=== PATIENT | female | born 1930 | race Caucasian/White ===

== ENCOUNTER → 2016-08-25 | Outpatient (CLI) | payer MEDICARE, OTHER ==
[~2016-08-25] MED LIST: ADVI200C5 PO; ALBUAER3 INH; ASPI81CH CHEW; B12-1CHW CHEW; BENZ100 PO; BETH25TA2 PO; CALC-131 PO; ESTR.625 PO; IMDU30TA PO; ISOS30TA3 PO; LEVO.075 PO; LYRI100C PO; OMEG5CAP PO; PRED20 PO; ROSU5 PO; SPIRCAP INH; ZANT150T2 PO; ZETI10TA5 PO
[2016-08-25 14:43] LABS: AUTOMATED NEUTROPHIL # 3.9 TH/MM3 (1.8-7.7); BASOPHIL # 0.1 TH/MM3 (0-0.2); BASOPHIL % 1.1 % (0.0-2.0); EOSINOPHIL # 0.1 TH/MM3 (0-0.4); EOSINOPHIL % 1.9 % (0.0-4.0); HEMATOCRIT 41.9 % (35.0-46.0); HEMO FLAGS DIFF FINAL; LYMPH % 31.5 % (9.0-44.0); LYMPHOCYTE # 2.1 TH/MM3 (1.0-4.8); MEAN CELL VOLUME 87.7 FL (80.0-100.0); MEAN CORPUSCULAR HEMOGLOBIN 29.7 PG (27.0-34.0); MEAN CORPUSCULAR HGB CONC 33.9 % (32.0-36.0); MONO % 6.8 % (0.0-8.0); NEUT % 58.7 % (16.0-70.0); PLATELET COUNT 213 TH/MM3 (150-450); RED BLOOD COUNT 4.78 MIL/MM3 (4.00-5.30); RED CELL DISTRIBUTION WIDTH 13.8 % (11.6-17.2); WHITE BLOOD COUNT 6.6 TH/MM3 (4.0-11.0)
--- NOTE | 2016-08-26 18:00 | EKG ---
Date Performed: 08/25/2016 Time Performed: 12:56:29 PTAGE: 86 years EKG: Sinus rhythm POSSIBLE LEFT ATRIAL ENLARGEMENT Since previous tracing, no significant change noted BORDERLINE ECG PREVIOUS TRACING : 05/28/2016 17.18 DOCTOR: Jluis Aviles Interpretating Date/Time 08/26/2016 18:00:11
== END ==
LOC: CPRE 12:29
PROVIDERS: ATTEND Ophthalmology
DX: Z01.810 Encounter for preprocedural cardiovascular examination (principal); Z01.812 Encounter for preprocedural laboratory examination; H25.812 Combined forms of age-related cataract, left eye; I25.10 Atherosclerotic heart disease of native coronary artery without angina pectoris; R94.31 Abnormal electrocardiogram [ECG] [EKG]
CPT/HCPCS: 36415; 85025; 93005

== ENCOUNTER → 2016-09-08 | Day surgery (SDC) | payer MEDICARE, OTHER ==
--- NOTE | 2016-08-26 12:58 | MH ---
cc: TATIANNA WANG DATE OF ADMISSION: 09/08/2016 ADMISSION DIAGNOSIS Cataract, left eye. HISTORY OF PRESENT ILLNESS This 86-year-old white female is coming through [facility] for the purpose of a lens extraction of the left eye with intraocular lens implant under general anesthesia. She has noticed decreasing visual acuity interfering with her daily activities and elected to have the above procedure. Her best corrected visual acuity in room light is 20/70 in each eye. PAST MEDICAL HISTORY 1. The patient has a history of vertigo and cannot lie flat comfortably and therefore is having her procedure done under general anesthesia. 2. History of a stroke in the past versus TIA. 3. Neuropathy. 4. Polymyalgia rheumatica with a history of temporal arteritis on the right side. 5. Allergic asthma. 6. Gastroesophageal reflux disease. 7. Meniere's disease with the episodes of vertigo. PAST SURGICAL HISTORY 1. Hysterectomy. 2. Gallbladder surgery. 3. Left carotid endarterectomy. 4. Heart catheterization. 5. Laser peripheral iridectomy in each eye for narrow anterior chamber angles. MEDICATIONS Daily medications include: 1. Lyrica. 2. Anne. 3. Premarin. 4. Synthroid. 5. Zetia. 6. Crestor. 7. Bethanechol. 8. Zantac. 9. Spiriva. 10.Imdur ER. 11.Isosorbide. 12.Babay aspirin, two a day. 13.Vitamin B2 and B-complex. 14.Calcium. 15.Fish oil. 16.Advil p.r.n. ALLERGIES 1. SULFA. 2. "MOST ANTIBIOTICS AND NARCOTICS." FAMILY HISTORY Positive for parents with cataracts, mother with diabetes and diabetic retinopathy. REVIEW OF SYSTEMS HEAD: Patient denies severe headaches or recent head injury. Patient does have some positional vertigo as mentioned. EARS: She wears hearing aids due to hearing loss. She has tinnitus, ringing in her ears. NOSE: Patient denies nasal discharge, obstruction or frequent colds. MOUTH AND THROAT: Patient denies soreness of the mouth or tongue, bleeding gums, trouble swallowing, changes in voice or sore throat. NECK: She has some neck discomfort due to polymyalgia and disc degeneration. CARDIOPULMONARY SYSTEM: She has a history of bronchitis secondary to allergies and asthma. Patient denies shortness of breath, orthopnea, chronic cough, sputum production, hemoptysis, chest pain, wheezing, palpitations or light-headedness. GI SYSTEM: She has hemorrhoids. Patient denies poor appetite, nausea, vomiting, abdominal pain, ulcers, or change in bowel habits. SYSTEM: The patient denies urinary frequency, dysuria, change in urine color. NERVOUS SYSTEM: History of vertigo and stroke versus TIA. Patient denies convulsions, numbness or weakness. PHYSICAL EXAMINATION VITAL SIGNS: Blood pressure 128/72, pulse 76, respirations 20. HEAD: Normocephalic, atraumatic. NOSE: Without rhinorrhea. THROAT: Clear. NECK: Supple. CHEST: Clear. HEART: Regular rhythm with murmur. ABDOMEN: Without tenderness. EXTREMITIES: Without edema. NEUROLOGIC: Within normal limits. MENTAL STATUS: Within normal limits. EYE EXAM: The patient's best-corrected visual acuity in room light is 20/70 in each eye. Visual becker are full to confrontation testing. Extraocular muscle exam reveals full versions with orthophoria at distance and near. Pupils are 2 mm equal, round, reactive to light without afferent defect. Anterior segment examination reveals a patent peripheral iridectomy in each eye. Posterior synechia are present in the right eye from 1-2 o'clock and in the left eye from 10-11 o'clock. There are nuclear sclerotic and cortical cataract changes present bilaterally. Intraocular pressure is 27 in each eye by applanation tonometry. Dilated fundus exam revealed sharp disks with cup-to-disk ratio of 0.25 bilaterally. There is granularity in the macula of each eye and a posterior vitreous detachment is present bilaterally. IMPRESSION 1. Bilateral cataracts. 2. Early macular degeneration. 3. Posterior vitreous detachment, both eyes. 4. Glaucoma suspect, low risk. PLAN Lens extraction of the left eye with intraocular lens implant under general anesthesia due to the patient's vertigo and unable to lie flat. Iris retractors may be used in this case as the patient has posterior synechia and small pupils that do not dilate well. The patient has been cleared medically. She has been counseled as to the risks, benefits and alternatives and elected to proceed. I feel that cataract surgery will improve the quality of life and activities of daily living in this patient. MD VITALIY Silva /12:27 PM /12:44 PM
[~2016-09-08] VITALS: Ht 167.6 cm; Wt 54.0 kg
[~2016-09-08] MED LIST changes: +ACETAMINOPHEN 325 MG TAB ONE; +ACETYLCHOLINE CHL OPHT SOLN 1:100 2 ML VIAL ONE; -ALBUAER3 INH; -BENZ100 PO; +CYCLOPENTOLATE HCL 1% OPHT SOLN 2 ML BTL ONE; +DICLOFENAC SOD 0.1% OPHT SOLN 2.5 ML BTL ONE; +EPINEPHrine HCL (1:1000) 30 MG/30 ML VIAL ONE; +FAMOTIDINE 20 MG/2 ML VIAL ONE; +GATIFLOXACIN 0.5% OPHT SOLN 2.5 ML BTL ONE; -IMDU30TA PO; +LIDOCAINE HCL 1% 30 ML VIAL OTHER ONE; +MIDAZOLAM HCL 2 MG/2 ML VIAL ONE; +ONDANSETRON HCL 4 MG/2 ML VIAL IV PUSH ONE; +PHENYLEPHRINE HCL 2.5% OPTH SOLN 2 ML BTL ONE; -PRED20 PO; +PROPARACAINE HCL 0.5% OPHT SOLN 15 ML BTL ONE; +SODIUM CHLORID 0.9% 500 ML INJ 500 ML ONE; +TROPICAMIDE 1% OPHT SOLN 15 ML BTL ONE; +VISCOAT OPHT IRRIG SOLN 0.75 ML SYRINGE LEFT EYE ONE; +ePHEDrine/NS 25 MG/5 ML SYR IV ONE
[2016-09-08 07:35] VITALS: BP 172/72; PULSE 80; RESP 16; TEMP 97.9; O2SAT 94
[2016-09-08] MEDS: PILOCARPINE HCL 2% OPHT SOLN 15 ML BTL ONE ×2 (09:17→10:04)
[2016-09-08] MEDS: TOBRAMYCIN/DEXAMETHASONE OPTH OINT 3.5 GM TUBE ONE ×3 (09:20→10:09)
[2016-09-08 10:20] VITALS: PULSE 83
[2016-09-08 10:45] VITALS: TEMP 97.5
[2016-09-08 11:10] VITALS: BP 145/50; PULSE 83; RESP 14; O2SAT 96
--- NOTE | 2016-09-08 11:27 | MP ---
cc: TATIANNA COPE DATE OF SURGERY: September 08, 2016 PREOPERATIVE DIAGNOSIS Cataract, left eye. POSTOPERATIVE DIAGNOSIS Cataract, left eye. OPERATION Extracapsular cataract extraction with posterior Chamber intraocular lens implant by phacoemulsification, left eye. SURGEON Tatianna Cope M.D. ANESTHESIA General. COMPLICATIONS None. INDICATIONS See history and physical previously dictated. OPERATIVE PROCEDURE After the patient had obtained adequate general anesthesia the left eye was prepped and draped in the usual sterile ophthalmic manner. A lid speculum was inserted in the left eye. A 4-0 silk bridle suture was placed through the conjunctiva near the superior rectus muscle and it was tagged to the drape. A fornix-based conjunctival flap was prepared spanning approximately 5 mm in width. Hemostasis was obtained with wet-field cautery. A 3.5 mm groove was made 1 mm from the limbus and dissected up to the limbus in the form of a scleral pocket incision. A stab incision was then made at the 2 o'clock position. Viscoelastic was injected into the anterior chamber. In order to maintain an adequately dilated pupil, it was elected to use iris retractors in this case. Stab incisions were made at the 1 o'clock, 3 o'clock, 5 o'clock, 8 o'clock and 10 o'clock positions. Iris retractors were then inserted through the stab incisions in the peripheral cornea and positioned to enlarge the size of the pupil. The anterior chamber was entered with a 3.0 mm keratome through the scleral pocket incision. A 360 degree continuous curvilinear capsulorrhexis was then performed. Hydrodissection was utilized to divide the nucleus into inner and outer components and to separate the cortex from the capsule. Phacoemulsification was then utilized to remove the nucleus. The outer nuclear layer was removed with irrigation and aspiration and short bursts of ultrasound as necessary. The cortex was removed with the irrigation-aspiration handpiece. The posterior capsule was polished with the capsule polisher. Viscoelastic was injected into the capsular bag. The intraocular lens was inspected and found to be in good condition. The lens utilized was a Twin model SA60AT with a power of +21 diopters. The lens was inserted into the capsular bag. The five iris retractors were removed. The viscoelastic in the anterior chamber was then removed with the irrigation-aspiration hand piece. Viscoelastic was also removed from beneath the intraocular lens. The anterior chamber was filled with Miochol-E through the stab incision and pressurized. The wound was checked for leaks at this pressure and normalized pressure and there were none. The 4-0 bridle suture was removed. The conjunctival flap was brought down over the wound and secured with cautery. Pilocarpine 2% eye drops were instilled topically. The lid speculum was removed. TobraDex ophthalmic ointment was applied. The eye was double patched and shielded. The patient tolerated the procedure well and left the operating room in satisfactory condition. MD JESSICA Silva/ZOYA /10:25 AM /11:13 AM
== END | disposition home or self-care (01) ==
LOC: CSDC 07:00
PROVIDERS: ATTEND Ophthalmology
DX: H25.812 Combined forms of age-related cataract, left eye (principal)
CPT/HCPCS: 00142; 66984; J0171; J2250; J2405; J7040; V2632

== ENCOUNTER → 2016-10-06 | Outpatient (CLI) | payer MEDICARE, OTHER ==
[~2016-10-06] MED LIST changes: -ACETAMINOPHEN 325 MG TAB ONE; -ACETYLCHOLINE CHL OPHT SOLN 1:100 2 ML VIAL ONE; -CYCLOPENTOLATE HCL 1% OPHT SOLN 2 ML BTL ONE; -DICLOFENAC SOD 0.1% OPHT SOLN 2.5 ML BTL ONE; -EPINEPHrine HCL (1:1000) 30 MG/30 ML VIAL ONE; -FAMOTIDINE 20 MG/2 ML VIAL ONE; -GATIFLOXACIN 0.5% OPHT SOLN 2.5 ML BTL ONE; -LIDOCAINE HCL 1% 30 ML VIAL OTHER ONE; -MIDAZOLAM HCL 2 MG/2 ML VIAL ONE; -ONDANSETRON HCL 4 MG/2 ML VIAL IV PUSH ONE; -PHENYLEPHRINE HCL 2.5% OPTH SOLN 2 ML BTL ONE; -PROPARACAINE HCL 0.5% OPHT SOLN 15 ML BTL ONE; -SODIUM CHLORID 0.9% 500 ML INJ 500 ML ONE; -TROPICAMIDE 1% OPHT SOLN 15 ML BTL ONE; -VISCOAT OPHT IRRIG SOLN 0.75 ML SYRINGE LEFT EYE ONE; -ePHEDrine/NS 25 MG/5 ML SYR IV ONE
[2016-10-06 13:26] LABS: HEMATOCRIT 40.5 % (35.0-46.0); MEAN CELL VOLUME 87.9 FL (80.0-100.0); MEAN CORPUSCULAR HEMOGLOBIN 28.5 PG (27.0-34.0); MEAN CORPUSCULAR HGB CONC 32.4 % (32.0-36.0); PLATELET COUNT 259 TH/MM3 (150-450); RED BLOOD COUNT 4.61 MIL/MM3 (4.00-5.30); RED CELL DISTRIBUTION WIDTH 13.6 % (11.6-17.2); REVIEW FLAG FINAL; WHITE BLOOD COUNT 7.7 TH/MM3 (4.0-11.0)
== END ==
LOC: PHPRE 11:39
PROVIDERS: ATTEND Ophthalmology
DX: Z01.812 Encounter for preprocedural laboratory examination (principal); H26.9 Unspecified cataract
CPT/HCPCS: 36415; 85027

== ENCOUNTER → 2016-10-20 | Day surgery (SDC) | payer MEDICARE, OTHER ==
--- NOTE | 2016-10-08 14:14 | MH ---
cc: TATIANNA WANG DATE OF ADMISSION: 10/20/2016 ADMISSION DIAGNOSIS Cataract, right eye. HISTORY OF PRESENT ILLNESS This 86-year-old white female is coming through [facility] for the purpose of a lens extraction of the right eye with intraocular lens implant under general anesthesia. She had a similar procedure on the left eye in August, did well postoperatively and now requests cataract surgery for her right. Her best corrected visual acuity is 20/70 +1 in the right eye in room light and 20/25 in the left. PAST MEDICAL HISTORY The patient has a history of: 1. Vertigo when she lies down and therefore needs to have her surgery under general anesthesia. 2. She also has a history of neuropathy. 3. Polymyalgia rheumatica. 4. Coronary artery disease. 5. History of a stroke versus TIA. 6. History of temporal arteritis on the right side. 7. Allergic asthma. 8. Gastroesophageal reflux disease. 9. Meniere's which gives her episodes also of vertigo. PAST SURGICAL HISTORY 1. Surgical history includes the above-mentioned cataract surgery on her left eye in August. 2. Hysterectomy. 3. Cholecystectomy. 4. Left carotid endarterectomy. 5. Heart cath. 6. Laser peripheral iridectomy in both eyes for narrow anterior chamber angles in the past. MEDICATIONS Daily medications include: 1. Lyrica. 2. Anne. 3. Premarin. 4. Synthroid. 5. Zetia. 6. Crestor. 7. Bethanechol. 8. Zantac. 9. Spiriva. 10. Imdur ER isosorbide. 11. Baby aspirin. 12. B12 and B complex vitamin. 13. Calcium. 14. Fish oil. 15. Advil p.r.n. ALLERGIES She is allergic to SULFA, MANY ANTIBIOTICS AND NARCOTICS. SOCIAL HISTORY She is a smoker in the past when she smoked one pack per day for 30 years. She does not drink alcohol. FAMILY HISTORY Family history is positive for parents with cataracts. The mother with diabetic retinopathy. REVIEW OF SYSTEMS HEAD: Patient denies severe headaches, recent head injury. EARS: Patient denies ear pain, discharge. She wears hearing aids for hearing loss and has tinnitus in her ears. NOSE: Patient denies nasal discharge, obstruction or frequent colds. MOUTH AND THROAT: Patient denies soreness of the mouth or tongue, bleeding gums, trouble swallowing, changes in voice or sore throat. NECK: She has neck discomfort due to disk disease and polymyalgia. CARDIOPULMONARY SYSTEM: She gets some shortness of breath which she says due to allergies, asthma, and has a history of bronchitis and she sleeps on several pillows due to her vertigo problem when she lies flat. No orthopnea, chronic cough, sputum production, hemoptysis, chest pain, wheezing, palpitations or light-headedness. GI SYSTEM: Patient denies poor appetite, nausea, vomiting, abdominal pain, ulcers, or change in bowel habits. She has a history of hemorrhoids. SYSTEM: The patient denies urinary frequency, dysuria, change in urine color. NERVOUS SYSTEM: Patient denies convulsions, numbness or weakness. She has benign positional vertigo causing dizziness. She has had the vertigo and stroke versus TIA. PHYSICAL EXAMINATION VITAL SIGNS: Blood pressure 128/62, pulse 72, respirations 20. HEAD: Normocephalic, atraumatic. NOSE: Without rhinorrhea. THROAT: Clear. NECK: Supple. CHEST: Clear. HEART: Regular rhythm with murmur. ABDOMEN: Without tenderness. EXTREMITIES: Without edema. NEUROLOGIC: Within normal limits. MENTAL STATUS: Mental status within normal limits. EYE EXAMINATION: The patient's best corrected visual acuity in room light is 20/70 +1 in the right eye, 20/25 in the left. Visual becker are full to confrontation testing. Extraocular muscle exam reveals full versions with orthophoria at distance and near. Pupils are 2 mm equal, round, reactive to light without afferent defect. Anterior segment examination reveals a peripheral iridectomy that is patent in each eye. There are posterior synechia present at the 1 to 2 o'clock position in the right eye. A nuclear sclerotic and cortical cataract is noted in the right eye and a posterior chamber intraocular lens is in place in the left. The intraocular pressure is 27 in the right eye and 19 in the left by applanation tonometry. Dilated fundus exam revealed sharp disk with cup-to-disk ratio 0.25 bilaterally. Some granularity is noted in the macula of each eye. Posterior vitreous detachment is present bilaterally. IMPRESSION 1. Cataract, right eye. 2. Pseudophakia, left eye. 3. Posterior vitreous detachment, both eyes. 4. Glaucoma suspect. PLAN Lens extraction of the right eye with intraocular lens implant under general anesthesia through [facility]. Iris retractors will be used in this case in which the pupil does not dilate well. The patient has been cleared medically. She has been counseled as to the risks, benefits and alternatives and elected to proceed. I feel that cataract surgery will improve the quality of life and activities of daily living in this patient. MD JESSICA Silva/ZOYA /1:25 PM /1:39 PM
[~2016-10-20] VITALS: Ht 160 cm; Wt 55.0 kg
[~2016-10-20] MED LIST changes: +ACETAMINOPHEN 500 MG CPLT ONE; +ACETYLCHOLINE CHL OPHT SOLN 1:100 2 ML VIAL ONE; +CYCLOPENTOLATE HCL 1% OPHT SOLN 2 ML BTL ONE; +DEXAMETHASONE SOD PHOS 4 MG/ML VIAL ONE; +DICLOFENAC SOD 0.1% OPHT SOLN 2.5 ML BTL ONE; +EPINEPHrine HCL (1:1000) 1 MG/ML VIAL ONE; +FAMOTIDINE 20 MG/2 ML VIAL ONE; +GATIFLOXACIN 0.5% OPHT SOLN 2.5 ML BTL ONE; +LACTATED RINGER'S 1000 ML INJ 1,000 ML ONE; +MIDAZOLAM HCL 2 MG/2 ML VIAL ONE; +ONDANSETRON HCL 4 MG/2 ML VIAL IV PUSH ONE; +PHENYLEPHRINE HCL 2.5% OPTH SOLN 2 ML BTL ONE; +PROPARACAINE HCL 0.5% OPHT SOLN 15 ML BTL ONE; +PROPOFOL 200 MG/20 ML AMP IV ONE; +TROPICAMIDE 1% OPHT SOLN 15 ML BTL ONE; +VISCOAT OPHT IRRIG SOLN 0.75 ML SYRINGE RIGHT EYE ONE
[2016-10-20 06:56] VITALS: BP 156/83; PULSE 75; RESP 18; TEMP 97.9; O2SAT 95
[2016-10-20] MEDS: PILOCARPINE HCL 2% OPHT SOLN 15 ML BTL ONE ×2 (08:05→08:52)
[2016-10-20] MEDS: TOBRAMYCIN/DEXAMETHASONE OPTH OINT 3.5 GM TUBE ONE ×2 (08:06→08:53)
[2016-10-20] MEDS: TETRACAINE 0.5% OPTH SOLN 4 ML BTL ONE ×2 (08:06→08:51)
[2016-10-20 09:03] VITALS: PULSE 69
[2016-10-20 09:30] VITALS: PULSE 66; TEMP 97.8
[2016-10-20 10:10] VITALS: BP 125/66; PULSE 69; RESP 14; O2SAT 92
--- NOTE | 2016-10-22 13:19 | MP ---
cc: TATIANNA COPE DATE OF SURGERY: October 20, 2016 PREOPERATIVE DIAGNOSIS: Cataract right eye. POSTOPERATIVE DIAGNOSIS: Cataract right eye. OPERATION: Extracapsular cataract extraction with posterior chamber intraocular lens implant by phacoemulsification, right eye. SURGEON: Tatianna Cope M.D. ANESTHESIA: General. COMPLICATIONS: None. INDICATIONS: See history and physical previously dictated. OPERATIVE PROCEDURE: After the patient had attained general anesthesia, the right eye was prepped and draped in the usual sterile ophthalmic manner. A lid speculum was inserted in the right eye. A 4-0 silk bridle suture was placed through the conjunctiva near the superior rectus muscle and it was tagged to the drape. A fornix-based conjunctival flap was prepared spanning approximately 5 mm in width. Hemostasis was obtained with wet-field cautery. A 3.5 mm groove was made 1 mm from the limbus and dissected up to the limbus in the form of a scleral pocket incision. A stab incision was then made at the 2 o'clock position. Viscoelastic was injected into the anterior chamber. In order to maintain an adequately dilated pupil, it was elected to use iris retractors in this case. Stab incisions were made at the 1 o'clock, 3 o'clock, 5 o'clock, 8 o'clock and 10 o'clock positions. Iris retractors were then inserted through the stab incisions in the peripheral cornea and positioned to enlarge the size of the pupil. The anterior chamber was entered with a 2.75 mm keratome through the scleral pocket incision. A 360 degree continuous curvilinear capsulorrhexis was then performed. Hydrodissection was utilized to divide the nucleus into inner and outer components and to separate the cortex from the capsule. Phacoemulsification was then utilized to remove the nucleus. The outer nuclear layer was removed with irrigation and aspiration and short bursts of ultrasound as necessary. The cortex was removed with the irrigation-aspiration handpiece. The posterior capsule was polished with the capsule polisher. Viscoelastic was injected into the capsular bag. The intraocular lens was inspected and found to be in good condition. The lens utilized was an Twin, model SA60AT with a power of +20 diopters. The lens was inserted into the capsular bag. The five iris retractors were removed. The viscoelastic in the anterior chamber was then removed with the irrigation-aspiration hand piece. Viscoelastic was also removed from beneath the intraocular lens. The anterior chamber was filled with Miochol-E through the stab incision and pressurized. The wound was checked for leaks at this pressure and normalized pressure and there were none. The 4-0 bridle suture was removed. The conjunctival flap was brought down over the wound and secured with cautery. Pilocarpine 2% eye drops were instilled topically. The lid speculum was removed. TobraDex ophthalmic ointment was applied. The eye was double patched and shielded. The patient tolerated the procedure well and left the Operating Room in satisfactory condition. MD JESSICA Silva/TOLU /9:06 AM /1:11 PM
== END | disposition home or self-care (01) ==
LOC: PHSDC 06:08
PROVIDERS: ATTEND Ophthalmology
DX: H26.9 Unspecified cataract (principal); H43.813 Vitreous degeneration, bilateral; K21.9 Gastro-esophageal reflux disease without esophagitis; J45.909 Unspecified asthma, uncomplicated; I25.10 Atherosclerotic heart disease of native coronary artery without angina pectoris; M35.3 Polymyalgia rheumatica; Z90.710 Acquired absence of both cervix and uterus
CPT/HCPCS: 00142; 66984; J0171; J1100; J2250; J2405; J7120; V2632